=== PATIENT | male | born 1955 | race Caucasian/White ===

== ENCOUNTER 2018-02-09 13:42 | Emergency (ER) | payer MEDICAID ==
--- NOTE | 2018-02-09 13:49 | EDM.PDOC ---
ED HPI GENERAL MEDICAL PROBLEM - General Chief Complaint: Neurological Problem Stated Complaint: WEAK/DIZZY Time Seen by Provider: 02/09/18 13:49 - History of Present Illness INITIAL COMMENTS - FREE TEXT/NARRATIVE: 62-year-old male presents emergency room with lightheadedness and weakness. Patient is doing much better now but he had an episode the last about 30 minutes where he felt weak and tired and he lightheaded and it was difficult for him to concentrate and his eyes wouldn't focus real well. He is now doing much better and back to baseline the patient ate an early breakfast and during this episode he ate a chicken wing. The patient's weakness was global was not isolated to one side or the other. He has no history of diabetes however he is strong family history of type 2 diabetes. Patient is not taking any routine medications for blood pressure or hyperlipidemia he is treated for chronic back pain. The patient does not use drugs or alcohol he does smoke on occasion less than half a pack a day he is currently treated for dyspepsia and his back pain. He has a regular physician in [facility]. Headache Pain Score (Numeric/FACES): 3 - Related Data Allergies Allergy/AdvReac Type Severity Reaction Status Date / Time No Known Allergies Allergy Verified 11/12/14 13:57 CDT Home Meds: Home Meds Hydrocodone/Acetaminophen [Vicodin 5-300 mg Tablet] 1 each PO DAILY 11/12/14 [ History] Past Medical History Other Gastrointestinal History: increased acid in stomache ED ROS GENERAL - Review of Systems Review Of Systems: See Below Constitutional: Reports: No Symptoms, Weakness, Fatigue, Other. Denies: Fever, Chills HEENT: Reports: No Symptoms (He is now back to normal) Respiratory: Reports: No Symptoms Cardiovascular: Reports: Palpitations. Denies: Chest Pain, Dyspnea on Exertion , Edema Endocrine: Reports: Fatigue. Denies: Polydypsia, Polyuria GI/Abdominal: Reports: No Symptoms : Reports: No Symptoms Musculoskeletal: Reports: Other (No new symptoms he has chronic back pain) Skin: Reports: No Symptoms Neurological: Reports: Dizziness. Denies: Headache ED EXAM, NEURO - Physical Exam Exam: See Below Exam Limited By: No Limitations General Appearance: Alert, No Apparent Distress Eye Exam: Bilateral Eye: Normal Inspection, PERRL Ears: Normal External Exam, Normal Canal, Hearing Grossly Normal, Normal TMs Nose: Normal Inspection, Normal Mucosa, No Blood Throat/Mouth: Normal Inspection, Normal Lips, Normal Teeth, Normal Gums, Normal Oropharynx, Normal Voice, No Airway Compromise Head Exam: Atraumatic, Normocephalic Neck: Normal Inspection, Supple, Non-Tender, Full Range of Motion Respiratory/Chest: No Respiratory Distress, Lungs Clear, Normal Breath Sounds, No Accessory Muscle Use, Chest Non-Tender Cardiovascular: Normal Peripheral Pulses GI/Abdominal: Normal Bowel Sounds, Soft, Non-Tender Neurological: Alert, Normal Mood/Affect, CN II-XII Intact, Normal Plantar Flexion, Normal Reflexes, No Motor/Sensory Deficits, Oriented x 3 Back Exam: Normal Inspection. No: CVA Tenderness (L), CVA Tenderness (R) Extremities: Normal Inspection, No Pedal Edema Psychiatric: Normal Affect, Normal Mood Skin Exam: Warm, Dry, Intact, Normal Color, No Rash EKG INTERPRETATION Rhythm: NSR Rate (Beats/Min): 74 [place]: LAD-Left [place] Deviation P-Wave: Present QRS: Normal ST-T: Normal QT: Normal Comparison: NA - No Prior EKG EKG Interpretation Comments: Abnormal leftward axis Course - Vital Signs Last Recorded V/S: Last Vital Signs Temp 37.5 C 02/09/18 13:48 Pulse 89 02/09/18 13:48 Resp 20 02/09/18 13:48 BP 162/102 H 02/09/18 13:48 Pulse Ox 97 02/09/18 13:48 - Orders/Labs/Meds Orders: Active Orders 24 hr Category Date Time Status EKG Documentation Completion [RC] STAT Care 02/09/18 14:23 Active Labs: Laboratory Tests 02/09/18 02/09/18 Range/Units 14:42 14:42 WBC 10.77 H (4.23-9.07) K/mm3 RBC 5.39 (4.63-6.08) M/mm3 Hgb 16.3 (13.7-17.5) gm/L Hct 48.1 (40.1-51.0) % MCV 89.2 (79.0-92.2) fl MCH 30.2 (25.7-32.2) pg MCHC 33.9 (32.2-35.5) g/dl RDW Std Deviation 42.7 (35.1-43.9) fL Plt Count 211 (163-337) K/mm3 MPV 10.6 (9.4-12.3) fl Neutrophils % (Manual) 65 H (40-60) % Band Neutrophils % 0 (0-10) % Lymphocytes % (Manual) 31 (20-40) % Atypical Lymphs % 0 % Monocytes % (Manual) 0 L (2-10) % Eosinophils % (Manual) 4 (0.8-7.0) % Basophils % (Manual) 0 L (0.2-1.2) Platelet Estimate Adequate RBC Morph Comment Normal Sodium 142 (136-145) mEq/L Potassium 3.8 (3.5-5.1) mEq/L Chloride 107 (98-107) mEq/L Carbon Dioxide 24 (21-32) mEq/L Anion Gap 14.8 (5-15) BUN 16 (7-18) mg/dL Creatinine 1.3 (0.7-1.3) mg/dL Est Cr Clr Drug Dosing 63.55 mL/min Estimated GFR (MDRD) 56 (>60) mL/min BUN/Creatinine Ratio 12.3 L (14-18) Glucose 167 H (80-115) mg/dL Calcium 8.7 (8.5-10.1) mg/dL Magnesium 2.0 (1.8-2.4) mg/dl Total Bilirubin 0.4 (0.2-1.0) mg/dL AST 21 (15-37) U/L ALT 51 (16-63) U/L Alkaline Phosphatase 68 (46-116) U/L Troponin I < 0.017 (0.00-0.056) ng/mL Total Protein 6.9 (6.4-8.2) g/dl Albumin 3.8 (3.4-5.0) g/dl Globulin 3.1 gm/dL Albumin/Globulin Ratio 1.2 (1-2) - Re-Assessments/Exams Free Text/Narrative Re-Assessment/Exam: 02/09/18 16:04 Laboratory evaluation is nondiagnostic however his random blood sugars 167 which is a little higher than one would suspect I suspect his initial episode the causing to coming here is related to hypoglycemic episode however cannot exclude a dysrhythmia. The patient's regular physician is in [facility] he will be home on Monday and can follow up with them. Departure - Departure Time of Disposition: 16:05 Disposition: Home, Self-Care 01 Clinical Impression: Hypoglycemia, Lightheadedness - Discharge Information Referrals: PCP,Not In Area [Primary Care Provider] - Forms: ED Department Discharge Additional Instructions: Return to the emergency room with any questions problems worsening symptoms. Because your symptoms cannot clearly be identified, however, I strongly suspect you had low blood sugar, or hypoglycemia, during the episode that caused you to come in. I cannot exclude a heart rhythm abnormality, or dysrhythmia as the cause. Follow-up with your regular doctor early this next week for further discussion evaluation and treatment. In the meantime eat regular meals with a small snack in between. Avoid foods with high sugar content. - My Orders Last 24 Hours: My Active Orders 02/09/18 14:23 EKG Documentation Completion [RC] STAT - Assessment/Plan Last 24 Hours: My Active Orders 02/09/18 14:23 EKG Documentation Completion [RC] STAT
[2018-02-09 13:50] VITALS: BP 162/102
== END 2018-02-09 16:20 | disposition home or self-care (01) ==
LOC: JD.ED 13:42
DX: E16.2 Hypoglycemia, unspecified (principal); R42 Dizziness and giddiness
CPT/HCPCS: 36415; 80053; 83735; 84484; 85007; 85027; 93010; 99283; 99284-25